=== PATIENT | male | born 1995 | race Caucasian/White ===

== ENCOUNTER → 2022-02-02 | Outpatient (CLI) | payer OTHER | LOC: M PLAIMG 06:52 | PROVIDERS: ATTEND Family Medicine | DX: S83.212A Bucket-handle tear of medial meniscus, current injury, left knee, initial encounter (principal); M25.462 Effusion, left knee; X58.XXXA Exposure to other specified factors, initial encounter; Y92.9 Unspecified place or not applicable; Y93.9 Activity, unspecified; Y99.9 Unspecified external cause status ==

== ENCOUNTER → 2022-06-21 | Outpatient (CLI) | payer OTHER | LOC: M CARPUL 08:58 | PROVIDERS: ATTEND Physician Assistant | DX: R06.02 Shortness of breath (principal) ==

== ENCOUNTER → 2022-07-07 | Outpatient (CLI) | payer OTHER ==
[~2022-07-07] MED LIST: METHACHOLINE KIT (J7674) INH ONE
== END ==
LOC: M CARPUL 13:10
PROVIDERS: ATTEND Physician Assistant
DX: R06.02 Shortness of breath (principal)
CPT/HCPCS: 94070; J7674

== ENCOUNTER → 2023-02-08 | Outpatient (CLI) | payer OTHER | LOC: M WUC 10:08 | PROVIDERS: ATTEND Surgery | DX: A15.0 Tuberculosis of lung (principal) ==